=== PATIENT | male | born 1955 | race Caucasian/White ===

== ENCOUNTER 2020-04-10 12:16 | Emergency (ER) | payer OTHER ==
[~2020-04-10] VITALS: Ht 182.9 cm; Wt 113.4 kg
[2020-04-10] MEDS ORDERED: ASPI81TA31 PO (12:38)
[2020-04-10] MEDS ORDERED: ATOR20TA PO (12:38)
[2020-04-10] MEDS ORDERED: ATEN25TA PO (12:38)
[2020-04-10] MEDS ORDERED: TAMS-3 PO (12:41)
[2020-04-10 13:04] LABS: BASOPHILS % (AUTO) 0.7 % (0.0-2.0); EOSINOPHILS # (AUTO) 0.1 K/uL (0.0-0.7); EOSINOPHILS % (AUTO) 1.3 % (0.0-7.0); HEMATOCRIT 43.9 % (36.7-47.1); HEMOGLOBIN 14.8 g/dL (12.5-16.3); LYMPHOCYTES # (AUTO) 1.2 K/uL (20.0-40.0); LYMPHOCYTES % (AUTO) 22.4 % (20.5-51.5); MEAN CORPUSCULAR HEMOGLOBIN 29.2 uug (23.8-33.4); MEAN CORPUSCULAR HGB CONC 34 g/dL (32.5-36.3); MEAN CORPUSCULAR VOLUME 86.4 fL (73.0-96.2); MONOCYTES # (AUTO) 0.5 K/uL (2.0-10.0); MONOCYTES % (AUTO) 9.2 % (0.0-11.0); NEUTROPHILS # (AUTO) 3.5 K/uL (1.8-8.9); NEUTROPHILS % (AUTO) 66.4 % (38.5-71.5); PLATELET COUNT (AUTO) 206 K/uL (152-348); RED BLOOD CELL COUNT(AUTO) 5.08 MIL/uL (4.06-5.63); WHITE BLOOD COUNT (AUTO) 5.3 K/uL (3.6-10.2)
[2020-04-10 13:27] LABS: BILIRUBIN,DIRECT 0.2 mg/dL (0.0-0.2); BILIRUBIN,TOTAL 0.8 mg/dL (0.2-1.0); CREATININE 1.2 mg/dL (0.6-1.3); POTASSIUM 4.8 mmol/L (3.5-5.1); TOTAL PROTEIN, SERUM 7.7 g/dL (6.4-8.2)
[2020-04-10] MEDS ORDERED: ASPIRIN 81 MG TAB.CHEW PO ONE (14:30)
[2020-04-10] MEDS ORDERED: ASPIRIN 81 MG TAB.CHEW ONE (14:33)
--- NOTE | 2020-04-10 14:39 | NUR ---
PT WAS EVALUATED BY DR DUQUE. PT WAS D/C'd TO HOME. D/C INSTRUCTIONS GIVEN TO THE PT BY DR CARRIZALES.
[2020-04-10 14:40] VITALS: BP 157/83
[2020-04-10] MEDS ORDERED: AMLODIPINE 5 MG TABLET PO ONE (14:45)
== END 2020-04-10 14:41 | disposition home or self-care (01) ==
LOC: ER 12:18 → EDBD 12:18 → ER 14:41
DX: R07.89 Other chest pain (principal); I10 Essential (primary) hypertension; Z82.49 Family history of ischemic heart disease and other diseases of the circulatory system; I45.10 Unspecified right bundle-branch block; Z86.16 Personal history of COVID-19; Z79.899 Other long term (current) drug therapy; Z79.82 Long term (current) use of aspirin; E78.5 Hyperlipidemia, unspecified; E66.9 Obesity, unspecified; Z68.33 Body mass index [BMI] 33.0-33.9, adult; N41.9 Inflammatory disease of prostate, unspecified; Z88.1 Allergy status to other antibiotic agents; Z88.0 Allergy status to penicillin; Z88.2 Allergy status to sulfonamides
CPT/HCPCS: 36415; 70030-TC; 71045; 85025; 93005; A4663